=== PATIENT | male | born 1940 | race Caucasian/White ===

== ENCOUNTER 2023-04-04 09:20 | Emergency (ER) | payer OTHER ==
[~2023-04-04] VITALS: Ht 190.5 cm; Wt 109.0 kg
[~2023-04-04 09:20] MED LIST: AMLO10TA80 PO; HYDR-4134 PO; METF-414 PO; WARF-53 PO
[2023-04-04 10:58] VITALS: BP 172/76
== END 2023-04-04 11:00 | disposition home or self-care (01) ==
LOC: ER 09:20
DX: R04.0 Epistaxis (principal)
CPT/HCPCS: 30901; 99283